=== PATIENT | female | born 1995 | race Caucasian/White ===

== ENCOUNTER 2019-07-14 13:11 | Emergency (ER) | payer OTHER, SELFPAY ==
--- NOTE | ~2019-07-14 | XR_ITS ---
EXAMINATION: XR chest 2V DATE: 07/14/2019 13:50 INDICATION: Left chest pain. TECHNIQUE: Frontal and lateral views of the chest were obtained. COMPARISON: Chest single view 07/24/2016, CT abdomen and pelvis 05/18/2016 FINDINGS: The chest demonstrates clear lungs without pneumonia, pleural effusion, or pneumothorax. Th e heart size is normal. IMPRESSION: 1. No acute cardiopulmonary disease. Reviewed, dictated and finalized at location [facility].
[2019-07-14 13:18] VITALS: BP 133/78; PULSE 140; RESP 20; TEMP 37.1; O2SAT 100
[2019-07-14 13:28] VITALS: PULSE 137
[2019-07-14 13:30] VITALS: BP 138/77; PULSE 128; RESP 20; O2SAT 100
--- NOTE | 2019-07-14 13:36 | ECG_ITS ---
Measurements Intervals [place] Rate: 140 P: 58 AR: 161 QRS: 54 QRSD: 78 T: 46 QT: 275 QTc: 420 Interpretive Statements SINUS TACHYCARDIA BASELINE ARTIFACT- V1 ABNORMAL ECG Electronically Signed On 07-14-2019 13:52:15 CDT by Favian Benavides D.O.
[2019-07-14 13:45] LABS: Basophils Percent Auto 0.4 % (0.2-1.2); Eosinophils Absolute Auto 0.3 K/mm3 (0-0.3); Eosinophils Percent Auto 2.5 % (0-4.4); Hematocrit 43.5 % (37.0-47.0); Hemoglobin 14.7 g/dL (12.0-15.0); Immature Granulocyte Absolute 0.04 K/mm3 (0.00-0.031); Immature Granulocyte Percent A 0.4 % (0-0.5); Lymphocytes Absolute Auto 2.41 K/mm3 (0.9-3.2); Lymphocytes Percent Auto 23.5 % (18.3-44.2); Mean Corpuscular HGB Conc 33.8 g/dl (32-36); Mean Corpuscular Hemoglobin 30.8 pg (26-34); Mean Platelet Volume 10.8 fl (7.4-10.4); Monocytes Absolute Auto 0.6 K/mm3 (0.1-0.6); Monocytes Percent Auto 5.5 % (2.6-8.5); Neutrophils Absolute Auto 6.9 K/mm3 (1.3-6.7); Neutrophils Percent Auto 67.7 % (45.5-73.1); Platelet Count Result 266 k/mm3 (150-375); Red Blood Count 4.78 M/mm3 (4.2-5.4); Red Cell Distribution Width 11.8 % (11.5-14.5); White Blood Count 10.3 K/mm3 (4.5-10.0)
[2019-07-14] MEDS: ASPIRIN 81 MG CHEWABLE TABLET 324 MG PO (13:45)
--- NOTE | 2019-07-14 13:53 | ED.CHESTPAIN ---
HPI - Chest Pain General Chief Complaint: Chest Pain Stated Complaint: chest pain Time Seen by Provider: 07/14/19 13:19 Source: patient Mode of arrival: ambulatory Limitations: no limitations History of Present Illness HPI narrative: This is a 24 year old female that presents to the ER for chest tightness and palpitations that started about 1.5 hours ago. Reports she was sitting at work watching TV and started feeling her heart race. [place] some chest tightness. Also reports feeling lightheaded. 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 Reports she did vagal maneuvers and got her heart rate to slow down. Reports still having some chest tightness. Denies fever, shortness of breath. Related Data Home Medications Medication Instructions Recorded Confirmed dextroamphetamine-amphetamine 20 mg PO DAILY 07/14/19 [Adderall] norgestimate-ethinyl estradiol 1 tablet PO DAILY 07/14/19 [[place]-Linyah] Allergies Allergy/AdvReac Type Severity Reaction Status Date / Time Penicillins Allergy Mild HIVES.FACIAL Verified 07/14/19 15:03 SWELLING amoxicillin Allergy Unknown Rash Verified 07/14/19 15:03 banana Allergy Unknown Itching Verified 07/14/19 15:03 cefprozil Allergy Unknown Other Verified 07/14/19 15:03 latex Allergy Unknown Rash Verified 07/14/19 15:03 tree nut Allergy Unknown Other Verified 07/14/19 15:03 WALNUT Allergy Unknown Other Uncoded 07/14/19 15:03 Review of Systems Review of Systems: Narrative: CONSTITUTIONAL: Denies fever CARDIOVASCULAR: Reports chest pain, palpitations. Denies edema. RESPIRATORY: Denies cough or dyspnea. All systems reviewed & are unremarkable except as noted in HPI and below PMFSH Past Medical History Medical History (Updated 07/14/19 @ 17:09 by Mady Stovall PA-C) History of ADHD Family History Family History (Updated 09/25/10 @ 08:40 by DOCTOR UNKNOWN) Other Diabetes mellitus Family history of seizure disorder Hypertension Social History Social History Alcohol intake: never Gender identity (if verbalized by the patient): Female Exam Narrative: Exam Narrative: GENERAL: Well-appearing, well-nourished, and in no acute distress. HEAD: Normocephalic, atraumatic. EYES: EOMI. NECK: No carotid bruits or JVD CHEST: Clear to auscultation. No respiratory distress. No wheezes rales or rhonchi HEART: Tachycardic, regular rhythm. No murmur heard. Normal peripheral pulses. EXTREMITIES: Normal range of motion. No edema. SKIN: Warm, dry, no rash. NEURO: No focal deficits. Alert and oriented x3. PSYCH: Normal mood and affect Course Consultations Consultation #1: Spoke with Dr. Mayberry about patient and work-up will follow-up in clinic. Date: 07/14/19 Time: 17:08 Vital Signs Vital signs: Vital Signs Temperature 98.8 F 07/14/19 13:18 Pulse Rate 140 H 07/14/19 13:18 Respiratory Rate 20 07/14/19 13:18 Blood Pressure 133/78 07/14/19 13:18 Pulse Oximetry 100 07/14/19 13:18 Temperature 98.8 F 07/14/19 13:18 Pulse Rate 109 H 07/14/19 15:54 Respiratory Rate 19 07/14/19 15:54 Blood Pressure 109/82 07/14/19 15:54 Pulse Oximetry 100 07/14/19 15:54 MDM - Chest Pain MDM Narrative Medical decision making narrative: Patient presents the emergency department for palpitations today. 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. Reports she put herself on the monitor during this episode and thought her heart rate looked like SVT. Reports she did a vagal maneuver and got her heart rate to come down. On arrival patient in sinus tach in the 130s and 140s. This responded to IV fluids. Patient now resting comfortably. Most recent heart rate is in the 90s. Otherwise vitals are normal. CBC is without acute changes. Metabolic with mild hypokalemia with potassium of 3.1. Patient given a dose of potassium in the ED. Baseline and 3-hour troponin are negative. Chest x-ray without concernin
[2019-07-14 13:56] LABS: Partial Thromboplastin Time 25.2 SECONDS (22.3-36.8); Prothrombin Time 13.2 Seconds (11.1-14.7)
[2019-07-14 13:57] LABS: Blood Urea Nitrogen 9 mg/dL (7-17); Calcium 8.9 mg/dL (8.4-10.2); Carbon Dioxide 26 mmol/L (22-30); Chloride 103 mmol/L (98-107); Estimated CRCL calculation 76 ml/min; Estimated Glomerular Filt Rate > 60; Glucose 129 mg/dL (65-105); Potassium 3.1 mmol/L (3.4-5.0); Sodium 139 mmol/L (137-145)
[2019-07-14] MEDS: SODIUM CHLORIDE 0.9% IV 1,000 ML 999 ML IV CONT (13:59)
[2019-07-14 14:05] VITALS: BP 116/71; BP 136/86; BP 142/81; PULSE 113; PULSE 118; PULSE 121
[2019-07-14 14:09] LABS: Troponin I < 0.012 ng/mL (0.000-0.034)
[2019-07-14] MEDS: POTASSIUM CHLORIDE 20 MEQ TABLET 40 MEQ PO (14:26)
[2019-07-14 15:54] VITALS: BP 109/82; PULSE 109; RESP 19; O2SAT 100
[2019-07-14 16:55] LABS: Troponin I < 0.012 ng/mL (0.000-0.034)
== END 2019-07-14 17:16 | disposition home or self-care (01) ==
PROVIDERS: Physician Assistant; Emergency Provider Emergency Medicine
DX: R00.2 Palpitations (principal); F90.9 Attention-deficit hyperactivity disorder, unspecified type; R00.0 Tachycardia, unspecified
CPT/HCPCS: 36415; 71046; 80048; 81025; 84484; 85025; 85610; 85730; 93005; 96360; 99284; A9270; J7030

== ENCOUNTER 2019-09-26 06:15 | Emergency (ER) | payer OTHER, SELFPAY ==
[2019-09-26] VITALS (7 sets, daily range): BP systolic 103–123; BP diastolic 68–91; PULSE 73–114; RESP 20; TEMP 36; O2SAT 100
--- NOTE | ~2019-09-26 | CT_ITS ---
EXAMINATION: CT abdomen pelvis w con DATE: 09/26/2019 08:40 INDICATION: Mid abdominal pain, vomiting TECHNIQUE: Computed tomography (CT) of the abdomen and pelvis was performed with 100 cc Omnipaque 350 intravenous contrast. Automated exposure control and iterative reconstruction technique were employe d. Exam dose: 353.85 mGy-cm total exam DLP. COMPARISON: 05/18/2016 CT abdomen pelvis FINDINGS: The lung bases are clear. Normal heart size. No pericardial or pleural effusion. The liver, gallbladder, bile ducts, spleen, pancreas, pancreatic duct, and adrenal glands and kidneys are unremarkable. Normal caliber abdominal aorta. No intraperitoneal or retroperitoneal or pelvic mass lesion or adenop athy. The uterus, adnexal areas and urinary bladder are unremarkable. There is thickening of the wall of the considerable length of the ilium, including terminal ileum. Th e segments are fluid distended, with occasional air-fluid levels. Consider infectious or inflammatory enteritis. There is mild to moderate free fluid in the dependent pelvis. Included skeletal structures are unremarkable. IMPRESSION: Abnormal thickening of the wall of the ileum, with numerous ileal fluid distended loops and scattered air-fluid level; consider infectious or inflammatory enteritis. Inflammatory bowel dise ase should be considered. Moderate free fluid in the dependent pelvis Reviewed, dictated and finalized at [facility]. Reviewed, dictated and finalized at location [facility]. IMPRESSION: Abnormal thickening of the wall of the ileum, with numerous ileal fluid distended loops and scattered air-fluid level; consider infectious or inf lammatory enteritis. Inflammatory bowel disease should be considered. Moderate free fluid in the dependent pelvis
--- NOTE | 2019-09-26 07:21 | ED.ABDPAIN ---
HPI - Abdominal Pain General Chief Complaint: Abdominal Pain Stated Complaint: abd pain/n/v/d Time Seen by Provider: 09/26/19 07:00 Source: patient Mode of arrival: ambulatory Limitations: no limitations History of Present Illness HPI narrative: This is 24 year old female who presents for evaluation of nausea, vomiting and diarrhea. She developed severe mid abdominal cramping with nausea and vomiting at 8 pm last night. She also reports diarrhea. She works at [employer] so she states they gave her 2 L of fluid and zofran. She states she is still having nausea and vomiting so she is concerned she is dehydrating. She still describes mid abdominal cramping. She does not believe this is a kidney stone. She denies fever or chills. MD elicited complaint: abdominal pain Related Data Home Medications Medication Instructions Recorded Confirmed dextroamphetamine-amphetamine 20 mg PO DAILY 07/14/19 [Adderall] norgestimate-ethinyl estradiol 1 tablet PO DAILY 07/14/19 [[place]-Linyah] Allergies Allergy/AdvReac Type Severity Reaction Status Date / Time Penicillins Allergy Mild HIVES.FACIAL Verified 07/14/19 15:03 SWELLING amoxicillin Allergy Unknown Rash Verified 07/14/19 15:03 banana Allergy Unknown Itching Verified 07/14/19 15:03 cefprozil Allergy Unknown Other Verified 07/14/19 15:03 latex Allergy Unknown Rash Verified 07/14/19 15:03 tree nut Allergy Unknown Other Verified 07/14/19 15:03 WALNUT Allergy Unknown Other Uncoded 07/14/19 15:03 Review of Systems Review of Systems: All systems reviewed & are unremarkable except as noted in HPI and below Constitutional: Constitutional: Denies chills and Denies fever(s) Gastrointestinal: Gastrointestinal: Reports abdominal pain, Reports diarrhea, Reports nausea and Reports vomiting Musculoskeletal: Musculoskeletal: Denies back pain PMFSH Past Medical History Medical History (Updated 09/26/19 @ 11:21 by Luci Wang MD) History of ADHD Family History Family History (Updated 09/25/10 @ 08:40 by DOCTOR UNKNOWN) Other Diabetes mellitus Family history of seizure disorder Hypertension Social History Social History Alcohol intake: never Gender identity (if verbalized by the patient): Female Exam Narrative: Exam Narrative: GENERAL: Well-appearing, well-nourished, and in no acute distress. HEAD: Normocephalic, atraumatic EYES: PERRLA and EOMI, conjunctiva clear without discharge THROAT:Mucous membranes moist, Oropharynx normal without erythema, exudate, peritonsillar swelling or fluctuance NECK: Supple, without lymphadenopathy or mass RESPIRATORY: No respiratory distress, Airway patent, Respirations non-labored, Clear to auscultation without rales, rhonchi or wheeze HEART: Regular rate and rhythm. No murmur heard. Normal peripheral pulses. ABDOMEN: Soft,umbilical and epigastric tenderness, nondistended, normal active bowel sounds. No masses. No rebound or guarding, No organomegaly. EXTREMITIES: No edema, normal strength with full range of motion. SKIN: Warm, dry, normal color without rash NEURO: Alert and oriented x3. CN 2-12 grossly intact. No focal deficits. PSYCH: Normal mood and affect. Course Reevaluation(s) Reevaluation #1: Patient states she feels better. She has been able to drink clear soda without nausea or vomiting. I Discussed CT findings. She will follow up with PCP as needed if symptoms do not resolve. Date: 09/26/19 Time: 11:19 Vital Signs Vital signs: Vital Signs Temperature 96.8 F L 09/26/19 06:16 Pulse Rate 114 H 09/26/19 06:16 Respiratory Rate 09/26/19 06:16 Blood Pressure 122/73 09/26/19 06:16 Pulse Oximetry 100 09/26/19 06:16 Temperature 96.8 F L 09/26/19 06:16 Pulse Rate 94 09/26/19 11:34 Respiratory Rate 09/26/19 11:34 Blood Pressure 116/79 09/26/19 11:34 Pulse Oximetry 100 09/26/19 11:34 MDM - Abdominal Pain Lab Data Attestation: I reviewed
[2019-09-26] MEDS: LACTATED RINGERS 1,000 ML 999 ML IV CONT ×2 (07:31→09:33)
[2019-09-26] MEDS: DICYCLOMINE HCL INJ 20 MG/2 ML VIAL IM (07:32)
[2019-09-26] MEDS: PROMETHAZINE HCL 25 MG/ML AMPUL 12.5 MG IV PUSH (07:32)
[2019-09-26 07:34] LABS: Basophils Percent Auto 0.1 % (0.2-1.2); Hemoglobin 14.2 g/dL (12.0-15.0); Immature Granulocyte Absolute 0.05 K/mm3 (0.00-0.031); Immature Granulocyte Percent A 0.4 % (0-0.5); Lymphocytes Absolute Auto 0.35 K/mm3 (0.9-3.2); Lymphocytes Percent Auto 2.8 % (18.3-44.2); Mean Corpuscular HGB Conc 33.8 g/dl (32-36); Mean Corpuscular Hemoglobin 30.6 pg (26-34); Mean Corpuscular Volume 90.5 fl (80-100); Mean Platelet Volume 10.3 fl (7.4-10.4); Monocytes Absolute Auto 0.3 K/mm3 (0.1-0.6); Monocytes Percent Auto 2.2 % (2.6-8.5); Neutrophils Absolute Auto 11.6 K/mm3 (1.3-6.7); Neutrophils Percent Auto 94.5 % (45.5-73.1); Platelet Count Result 239 k/mm3 (150-375); Red Blood Count 4.64 M/mm3 (4.2-5.4); Red Cell Distribution Width 11.9 % (11.5-14.5); White Blood Count 12.3 K/mm3 (4.5-10.0)
[2019-09-26 07:41] LABS: Add Urine Microscopic? YES; Appearance Urine Clear (Clear); Bilirubin Urine Negative (Negative); Blood Urine Negative (Negative); Color Urine Yellow (Yellow); Glucose Urine UA Negative (Negative); Ketones Urine 2+ mg/dL (Negative); Leukocyte Esterase Ur Trace LEU/UL (Negative); Mucus Urine Rare /lpf; Nitrate Urine Negative (Negative); Protein Urine Negative (Negative); RBC Urine 0-2 /hpf (0-2); Squamous Epithelial Cell Urine Few /hpf (Few); Urobilinogen Urine Negative mg/dL (<2.0)
[2019-09-26 08:13] LABS: Alanine Aminotransferase 13 U/L (4-35); Albumin Level 3.7 g/dL (3.5-5.1); Alkaline Phosphatase 44 U/L (38-126); Anion Gap 13.7 mmol/L (7-16); Aspartate Amino Transferase 22 U/L (14-36); Blood Urea Nitrogen 10 mg/dL (7-17); Calcium 8.4 mg/dL (8.4-10.2); Carbon Dioxide 19 mmol/L (22-30); Chloride 108 mmol/L (98-107); Estimated Glomerular Filt Rate > 60; Glucose 111 mg/dL (65-105); Lipase 27 U/L (23-300); Potassium 3.7 mmol/L (3.4-5.0); Sodium 137 mmol/L (137-145)
== END 2019-09-26 11:35 | disposition home or self-care (01) ==
PROVIDERS: Emergency Medicine; Emergency Provider General Practice
DX: K52.9 Noninfective gastroenteritis and colitis, unspecified (principal); F90.9 Attention-deficit hyperactivity disorder, unspecified type
CPT/HCPCS: 36415; 74177; 80053; 81001; 81025; 83690; 85025; 96361; 96372; 96374; 99284; J0500; J2550; J7120; Q9967

== ENCOUNTER 2022-12-18 09:13 | Emergency (ER) | payer BC, SELFPAY ==
--- NOTE | 2022-12-18 09:19 | ED.URI ---
HPI - URI/Sore Throat General Chief Complaint: Upper Respiratory Infection Stated Complaint: bilateral ear pain,cough Time Seen by Provider: 12/18/22 09:41 Source: patient and RN notes reviewed Mode of arrival: ambulatory Limitations: no limitations History of Present Illness HPI Narrative: 27-year-old female presents concern for 2 week history of cough, nasal congestion, nasal drainage, bilateral ear pain and pressure. Reports taking Tylenol without relief. She denies fever, chills, sweats. MD elicited complaint: cough and nasal congestion Related Data Home Medications Medication Instructions Recorded Confirmed norgestimate 0.25 mg-ethinyl 1 tablet PO DAILY 07/14/19 estradiol 35 mcg tablet ([place]-Linyah) blood-glucose meter (FreeStyle #1 ea 03/21/20 Lite Meter kit) Allergies Allergy/AdvReac Type Severity Reaction Status Date / Time Penicillins Allergy Mild HIVES.FACIAL Verified 12/18/22 09:50 SWELLING amoxicillin Allergy Unknown Rash Verified 12/18/22 09:50 banana Allergy Unknown Itching Verified 12/18/22 09:50 cefprozil Allergy Unknown Other Verified 12/18/22 09:50 latex Allergy Unknown Rash Verified 12/18/22 09:50 tree nut Allergy Unknown Other Verified 12/18/22 09:50 WALNUT Allergy Unknown Other Uncoded 07/14/19 15:03 Review of Systems Review of Systems: CONSTITUTIONAL: Denies malaise, chills, sweats, or fever. EYES: Denies visual changes, redness, or discharge. ENT: Reports rhinorrhea, congestion, sinus pain, otalgia CARDIOVASCULAR: Denies chest pain, palpitations, or edema. RESPIRATORY: Reports cough. Denies dyspnea. GASTROINTESTINAL: Denies abdominal pain, nausea, vomiting, diarrhea SKIN: Denies rash or itching. MUSCULOSKELETAL: Denies myalgia. NEUROLOGIC: Denies headache. All systems reviewed & are unremarkable except as noted in HPI and below PMFSH Past Medical History Medical History (Updated 12/18/22 @ 09:48 by Venus Sabillon NP) History of ADHD Family History Family History (Updated 09/25/10 @ 08:40 by DOCTOR UNKNOWN) Other Diabetes mellitus Family history of seizure disorder Hypertension Social History Social History (Updated 03/21/20 @ 10:55 by Annette Wall) Alcohol intake: current Alcohol use details: Occassionally Substance use: current Substance use type: marijuana Other substance usage details: Uses marijuana occassionally Gender identity (if verbalized by the patient): Female Comments At time of signature, agree with nursing past medical, surgical, social and family history. There is no relevant family history pertinent to the presenting complaint Exam Narrative: GENERAL: Well-appearing, well-nourished, and in no acute distress. HEAD: Normocephalic EYES: PERRLA, conjunctivae clear ENT: Nares clear, turbinates edematous and erythematous, clear discharge. Mucous membranes moist. TM pearly weinstein with dull light reflex bilaterally; no tragal tenderness. Oropharynx not erythematous without lesions. Tonsils not enlarged and without exudate, no drooling, no hoarseness, no trismus, uvula midline. NECK: Supple. No lymphadenopathy CHEST: Clear to auscultation, breath sounds equal. No wheezing, rhonchi, rales, or stridor. No respiratory distress, speaks in full sentences. HEART: Regular rate and rhythm. No murmur heard. SKIN: Warm, dry, no rash. NEURO: Alert and oriented x3. PSYCH: Normal mood and affect Course Course Emergency Course: Patient is aware of diagnosis, understands and agrees to treatment plan. Anticipatory guidance given. Patient agrees to follow-up as directed and is aware of reasons to seek care at the emergency department. Portions of this record may have been created with voice recognition software Level of Care: Express Care Visit Vital Signs Vital signs: Reviewed. MDM - URI/Sore Throat MDM Narrative Medical decision making narrative: Differential diagnosis considered: [place] virus, strep pharyngitis, allergi
[2022-12-18 09:37] VITALS: BP 125/82; PULSE 86; RESP 16; TEMP 36.3; O2SAT 100
== END 2022-12-18 09:58 | disposition home or self-care (01) ==
PROVIDERS: Emergency Provider Nurse Practitioner; PCP Family Medicine
DX: J32.9 Chronic sinusitis, unspecified (principal); J40 Bronchitis, not specified as acute or chronic; F12.90 Cannabis use, unspecified, uncomplicated
CPT/HCPCS: 87081; 87880; 99213; G0463